=== PATIENT | female | born 1985 | race Asian ===

== ENCOUNTER 2018-04-07 14:47 | Observation (INO) | payer SELFPAY ==
[~2018-04-07] VITALS: Ht 160 cm; Wt 65.0 kg
[2018-04-08 07:53] VITALS: BP 122/73
[2018-04-08] MEDS ORDERED: PREN1TAB10 PO (08:35)
== END 2018-04-08 09:06 | disposition home or self-care (01) ==
LOC: INTOOBSV 04-08 06:46 → LDIP 04-08 06:46 → UNDOADMOB 04-08 06:46 → LDIP 04-08 07:51 → UNDODISOB 04-08 09:06
PROVIDERS: ADMIT Obstetrics & Gynecology; ATTEND Obstetrics & Gynecology
DX: O62.9 Abnormality of forces of labor, unspecified (principal); O26.893 Other specified pregnancy related conditions, third trimester; R10.9 Unspecified abdominal pain; Z3A.39 39 weeks gestation of pregnancy
CPT/HCPCS: G0378